=== PATIENT | female | born 1975 | race Caucasian/White ===

== ENCOUNTER 2017-04-01 13:30 | Emergency (ER) | payer MEDICAID ==
[~2017-04-01] VITALS: Wt 68.2 kg
[~2017-04-01 13:30] MED LIST: CALC600T PO; FAMO-96 PO; FERR28TA PO; GUAI473L22 PO; LOPE2CAP PO; ONDA4TAB14 PO; ONDA4TAB35 PO; PNV11TAB PO
[2017-04-01] MEDS ORDERED: IBUPROFEN 600 MG TAB PO ONE (15:00)
--- NOTE | 2017-04-01 16:36 | RADRPT ---
PROCEDURE: XR Chest. CLINICAL INDICATION: chest pain TECHNIQUE: Single frontal view of the chest was obtained COMPARISON: CR CHEST 10/08/2015 FINDINGS: The heart and mediastinum are within normal limits. There is a tiny right upper lobe calcified granuloma. There is mild scarring in the left lung base. The lungs are otherwise clear. There is no pleural effusion or pneumothorax. RPTAT: AA IMPRESSION: Calcified granuloma. .Gael Olsen MD, MD Date Time Electronically viewed and signed by .Gael Olsen MD, on 04/01/2017 16:36 .S/
--- NOTE | 2017-04-01 16:37 | RADRPT ---
PROCEDURE: XR right shoulder. CLINICAL INDICATION: Pain TECHNIQUE: Axillary, Internal and external rotation views of the right shoulder were performed. COMPARISON: None. FINDINGS: There is normal osseous mineralization and alignment. No acute fracture or osseous lesion is identified. There are normal joints without evidence of arthritis or dislocation. The soft tissues are unremarkable. RPTAT: AA IMPRESSION: Unremarkable right shoulder. .Gael Olsen MD, MD Date Time Electronically viewed and signed by .Gael Olsen MD, on 04/01/2017 16:36 .S/
--- NOTE | 2017-04-01 16:38 | RADRPT ---
PROCEDURE: XR Cervical Spine. CLINICAL INDICATION: pain TECHNIQUE: AP, lateral and odontoid views of the cervical spine were performed. The images were re viewed on a PACS workstation. COMPARISON: None. FINDINGS: The vertebral body alignment, height and osseous mineralization are normal. The intervertebral disc spaces are well maintained. There is a tiny calcification (3 mm) in the soft tissues anterior of C5-C6. There is no significant swelling of the prevertebral soft tissues. No radiopaque foreign bodies are identified. There is no acute fracture or subluxation. RPTAT: AA IMPRESSION: No acute fracture. Tiny calcification in the soft tissues anterior of C5-C6, likely within the soft tissues. .Gael Olsen MD, MD Date Time Electronically viewed and signed by .Gael Olsen MD, MD on 04/01/2017 16:38 .S/
--- NOTE | 2017-04-01 16:40 | RADRPT ---
PROCEDURE: RIGHT knee x-ray CLINICAL INDICATION: Knee pain TECHNIQUE: AP, lateral, tongue no and oblique views of the knee were obtained. COMPARISON: None FINDINGS: There is normal mineralization. There is a possible avulsion fracture seen in the posterolateral aspect of the right distal femur. There is no joint effusion. There are no significant degenerative changes. There is no significant soft tissue swelling. RPTAT: AA IMPRESSION: Possible avulsion fracture of the posterolateral aspect of the right distal femur. Further evaluation with CT is recommended. .Geal Olsen MD, MD Date Time Electronically viewed and signed by .Gael Olsen MD, on 04/01/2017 16:40 .S/
--- NOTE | 2017-04-01 16:40 | RADRPT ---
PROCEDURE: XR Hip. CLINICAL INDICATION: pain TECHNIQUE: AP and frog lateral views of the left hip were performed. COMPARISON: None. FINDINGS: There is normal mineralization and alignment. No acute fracture or osseous lesion is identified. There are no significant degenerative changes in the hip. The soft tissues are unremarkable. RPTAT: AA IMPRESSION: Unremarkable left hip. .Gael Olsen MD, MD Date Time Electronically viewed and signed by .Gael Olsen MD, on 04/01/2017 16:40 .S/
--- NOTE | 2017-04-01 16:41 | RADRPT ---
PROCEDURE: XR Forearm. CLINICAL INDICATION: pain TECHNIQUE: AP and lateral views of the right forearm were obtained. COMPARISON: No prior studies are available for comparison. FINDINGS: There is normal mineralization and alignment. No fracture or osseous lesion is identified. The soft tissues are unremarkable. RPTAT: AA IMPRESSION: Unremarkable right forearm. .Gael Olsen MD, MD Date Time Electronically viewed and signed by .Gael Olsen MD, on 04/01/2017 16:41 .S/
--- NOTE | 2017-04-01 16:41 | RADRPT ---
PROCEDURE: XR Ankle. CLINICAL INDICATION: Pain TECHNIQUE: AP, oblique and lateral views of the right ankle were performed. COMPARISON: None. FINDINGS: There is normal mineralization and alignment. No acute fracture or osseous lesion is identified. The joints are normal. There is a moderate plantar calcaneal spur. The soft tissues are unremarkable. RPTAT: AA IMPRESSION: Moderate plantar calcaneal spur. .Gael Olsen MD, MD Date Time Electronically viewed and signed by .Gael Olsen MD, on 04/01/2017 16:40 .S/
--- NOTE | 2017-04-01 16:42 | RADRPT ---
PROCEDURE: Left hand x-ray CLINICAL INDICATION: pain TECHNIQUE: AP, lateral and oblique views of the left hand were obtained. COMPARISON: None FINDINGS: There is normal mineralization. No acute fracture or dislocation is seen. There are no significant degenerative changes. There is no significant soft tissue swelling. RPTAT: AA IMPRESSION: Normal x-ray of the left hand x-ray . .Gael Olsen MD, MD Date Time Electronically viewed and signed by .Gael Olsen MD, on 04/01/2017 16:42 .S/
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
[2017-04-01] MEDS ORDERED: IBUP-1542 PO (18:49)
[2017-04-01] MEDS ORDERED: ORPH100T PO (18:50)
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
== END 2017-04-01 19:19 | disposition home or self-care (01) ==
LOC: FTE 13:30
DX: S19.9XXA Unspecified injury of neck, initial encounter (principal); S29.9XXA Unspecified injury of thorax, initial encounter; S69.92XA Unspecified injury of left wrist, hand and finger(s), initial encounter; S89.91XA Unspecified injury of right lower leg, initial encounter; R07.9 Chest pain, unspecified; V43.52XA Car driver injured in collision with other type car in traffic accident, initial encounter
CPT/HCPCS: 71010; 72040; 73030; 73090; 73130; 73510; 73562; 73610; 73700; 93005; Z7502; Z7610

== ENCOUNTER 2017-04-06 17:39 | Emergency (ER) | payer MEDICAID ==
[~2017-04-06] VITALS: Ht 160 cm; Wt 69.5 kg
[~2017-04-06 17:39] MED LIST changes: +IBUP-1542 PO; +ORPH100T PO
[2017-04-06 17:57] VITALS: Ht 160 cm; Wt 69.5 kg
[2017-04-06] MEDS ORDERED: ONDANSETRON (ODT) 4 MG TAB ODT STA (18:27)
[2017-04-06] MEDS ORDERED: IBUPROFEN 600 MG TAB PO ONE (18:30)
[2017-04-06] MEDS ORDERED: DICYCLOMINE 10 MG CAP PO ONE (18:30)
[2017-04-06] MEDS ORDERED: ONDA4TAB14 PO (18:35)
[2017-04-06] MEDS ORDERED: DICY10CA60 PO (18:35)
[2017-04-06] MEDS ORDERED: IBUP-1542 PO (18:35)
--- NOTE | 2017-04-06 18:51 | ERD ---
ER Documentation Chief Complaint Date/Time DATE: 04/06/17 TIME: 18:47 Chief Complaint AP WITH N/V/D, HEADACHE HPI 41-year-old female presents here in Emergency department for complaints abdominal pain vomiting diarrhea that started 4 days ago. Patient does not have any blood in the stool or black stool. patient's son has the samesymptoms. Patient does not have any hematuria or dysuria. Patient did not have any recent travels.Patient did not take any medications. ROS All systems reviewed and are negative except as per history of present illness. Medications Home Meds Active Scripts Ondansetron (Ondansetron Odt) 4 Mg Tab.rapdis, 4 MG PO Q8 Y for NAUSEA AND/OR VOMITING, #30 TAB Prov:DAYNE CERDA NP 04/06/17 Ibuprofen* (Motrin*) 600 Mg Tab, 600 MG PO Q6H Y for PAIN AND OR ELEVATED TEMP, #30 TAB Prov:DAYNE CERDA NP 04/06/17 Dicyclomine Hcl* (Bentyl*) 10 Mg Capsule, 20 MG PO QID, #20 CAP Prov:DAYNE CERDA NP 04/06/17 Orphenadrine Citrate (Norflex) 100 Mg Tablet.sa, 100 MG PO BID for 5 Days, TAB.SA Prov:ANNITA STEWART 04/01/17 Ibuprofen* (Motrin*) 600 Mg Tab, 600 MG PO Q6, #30 TAB Prov:ANNITA STEWART 04/01/17 Famotidine* (Pepcid*) 20 Mg Tablet, 20 MG PO DAILY, #14 TAB Prov:SANDRA CÁDRENAS PA-C 04/25/16 Ondansetron (Ondansetron Odt) 4 Mg Tab.rapdis, 4 MG PO Q6H Y for NAUSEA AND/OR VOMITING, #10 TAB Prov:SANDRA CÁRDENAS PA-C 04/25/16 Guaifenesin-Codeine Phosphate* (Guaifenesin* AC Cough Syrup) 473 Ml Liquid, 10 ML PO QHS Y for COUGH, #120 ML Prov:FLORENTINO FAUSTIN PA-C 10/08/15 Ondansetron Hcl* (Zofran* ODT) 4 mg -ODT Tab.disper, 4 MG PO Q6 Y for NAUSEA AND /OR VOMITING, #6 TAB Prov:FLORENTINO FAUSTIN DMITRI 10/08/15 Loperamide Hcl* (Imodium*) 2 Mg Capsule, 2 MG PO .AFTER EA LOOSE BM Y for DIARRHEA, #5 TAB Prov:FLORENTINO FAUSTIN DMITRI 10/08/15 Reported Medications Calcium Carbonate (Calcium) 600 Mg Tablet, 600 MG PO DAILY 11/02/13 [id number] ( 19) 1 Each Tablet, 1 EACH PO DAILY 11/02/13 Ferrous Sulfate (Ferrous Sulfate) 1 Tab Tablet, 1 TAB PO DAILY 11/02/13 Allergies Allergies: Coded Allergies: No Known Allergy (Unverified , 11/02/13) PMhx/Soc History of Surgery: Yes () Anesthesia Reaction: No Hx Neurological Disorder: No Hx Respiratory Disorders: No Hx Cardiac Disorders: No Hx Psychiatric Problems: No Hx Miscellaneous Medical Probl: Yes (gastritis) Hx Alcohol Use: No Hx Substance Use: No Hx Tobacco Use: No FmHx Family History: No coronary disease, No diabetes, No other Physical Exam Vitals Vital Signs Date Time Temp Pulse Resp B/P Pulse Ox O2 Delivery O2 Flow Rate FiO2 04/06/17 17:57 100.4 97 17 116/73 97 Physical Exam GENERAL: The patient is well developed and appropriate for usual state of health, in no apparent distress. CHEST: Clear to auscultation bilaterally. There are no rales, wheezes or rhonchi. HEART: Regular rate and rhythm. No murmurs, clicks, rubs or gallops. No S3 or S4. ABDOMEN: Soft, nontender and nondistended. Hyperactive bowel sounds. No rebound or guarding. No gross peritonitis. No gross organomegaly or masses. No Melgoza sign or McBurney point tenderness. BACK: No midline or flank tenderness. EXTREMITIES: Equal pulses bilaterally. There is no peripheral clubbing, cyanosis or edema. No focal swelling or erythema. Full range of motion. Grossly neurovascularly intact. NEURO: Alert and oriented. Cranial nerves 2-12 intact. Motor strength in all 4 extremities with 5/5 strength. Sensation grossly intact. Normal speech and gait. SKIN: There is no apparent rash or petechia. The skin is warm and dry. HEMATOLOGIC AND LYMPHATIC: There is no evidence of excessive bruising or lymphedema. No gross cervical, axillary, or inguinal lymphadenopathy. Results 24 hrs Current Medications Medications (Trade) Dose Ordered Sig/Neelima Route PRN Reason Start Time Stop Time Status Last Admin Dose Admin Ondansetron HCl (Zofran Odt) 4 mg ONCE STAT ODT 04/06/17 18:27 04/06/17 18:28 DC Ibuprofen (Motrin) 600 mg ONCE ONCE PO 04/06/17 18:30 04/06/17 18:31 DC Dicyclomine HCl (Bentyl) 20 mg ONCE ONCE PO 04/06/17 18:30 04/06/17 18:31 DC Patient was given medication for pain here in emergency department, after treatment, patient verbalized feeling much better. Patient's pain is improved.Patient was given Zofran here in the emergency department. After treatment, patient was able to tolerate po fluids here in the emergency department without any vomiting. There is no signs and symptoms of dehydration. Procedures/MDM Medical Decision Making: Pt s/s most likely consistent with viral AGE. no s/s of dehydration. There is low suspicion for abdominal emergencies at this time. Patients abdominal exam is normal at this time. Radiology exams or lab testing not indicated. There is low suspicion for appendicitis, cholecystitis, abdominal aortic aneurysms or peritonitis at this time. There is low suspicion for sepsis. Patient appears well and is hemodynamically stable. Disposition: Home. Condition: Stable Prescription bentyl, zofran, ibuprofen Instructions: Patient is advised to take medications as prescribed. Patient is advised to rest, increase fluid intake and do brat diet for next 1-2 days and progress as tolerated. Patient is advised that if symptoms are worse, severe abdominal pain, uncontrolled vomiting, high fever, severe flank pain, worst signs and symptoms, to return to the emergency department immediately. Otherwise, patient can follow up with primary care doctor in 5-7 days. Departure Diagnosis: Primary Impression: Viral gastroenteritis Condition: Stable Patient Instructions: Gastroenteritis, Viral (6Y-Adult) DAYNE CERDA NP Apr 06, 2017 18:51
== END 2017-04-06 19:16 | disposition home or self-care (01) ==
LOC: FTE 17:39
DX: A08.4 Viral intestinal infection, unspecified (principal)
CPT/HCPCS: Z7502; Z7610; 99284